=== PATIENT | female | born 1940 | race African-American/Black ===

== ENCOUNTER 2024-10-27 19:41 | Inpatient (IN) ==
[2024-10-27 20:13] LABS: Eosinophils#(Absolute)Auto 0.1 (0.0-0.2); White Blood Count 11.6 K/uL (4.3-9.3)
[2024-10-27 20:16] LABS: Basophils%(Percent) Auto 0.3 (0.1-0.85); Eosinophils%(Percent) Auto 0.9 % (0.4-2.8); Granulocytes % - Auto 76.5 % (47.8-71.3); Granulocytes#(Absolute)- Auto 8.9 (2.3-6.0); Mean Corpuscular Volume 75.5 fl (81.0-93.7); Monocytes #(Absolute)- Auto 2.1 (1.1-3.1); Monocytes %(Percent)- Auto 18.4 % (3.6-9.8); Platelet Count 330 K/uL (152-353)
[2024-10-27 20:20] LABS: Potassium 4.7 mmol/L (3.6-5.2)
--- NOTE | 2024-10-27 20:24 | Emergency Department Note ---
HPI - General Adult General Chief complaint: Weakness Stated complaint: weakness, leg swelling Source: patient and family Mode of arrival: WHEELCHAIR Limitations: no limitations History of Present Illness HPI narrative: A 84-year-old female who came into the ER with her daughter stating that she has had 4 months of weakness worsening was seen on the in the ER was diagnosed with anemia at that time she refused blood was sent home to follow the PCP further workup as warranted. Patient states that today she can hardly go to becoming increasing short of breath. Still does not want blood work is wanting to do an iron infusion. Patient denies any blood loss no vaginal bleeding no rectal bleeding stools are brown has 1 to 2/day formed. Patient denies any ill contacts, tries make self do at home but she does realize she is less active has not been to congregation in several months because she is so weak. Denies any fever, chills, nausea, vomiting, Related Data Home Medications Medication Instructions Recorded Confirmed metoprolol tartrate 100 mg tablet 100 mg PO Q12H 10/2210/28/24 furosemide 20 mg tablet 20 mg PO BID 10/28/24 Allergies Allergy/AdvReac Type Severity Reaction Status Date / Time lisinopril AdvReac Mild Cough Verified 10/27/24 20:06 Review of Systems Status of ROS 10 or more systems reviewed and unremark able except as noted in history and below Constitutional Reports: fatigue and malaise; Denies: fever, chills, change in weight, night sweats or change in sleep pattern Eyes Denies: change in vision, blurry vision, blind spots, light sensitivity, eye discomfort or eye discharge Ears, nose, mouth, and throat Denies: throat pain, neck pain, throat swelling, difficulty swallowing, hoarseness, mouth pain or swelling of lips/tongue Cardiovascular Reports: palpitations, swelling of feet/ankles, lightheadedness, shortness of breath with exertion and shortness of breath when lying down; Denies: chest pain or edema Respiratory Reports: shortness of breath; Denies: cough, wheezing, stridor, pain on inspiration or change in phlegm color Gastrointestinal Reports: constipation; Denies: abdominal pain, nausea, vomiting, coffee grounds in vomit, heartburn or diarrhea Genitourinary Reports: urinary incontinence; Denies: painful urination, urinary frequency, urinary urgency, blood in urine or difficulty voiding Musculoskeletal Reports: back pain, extremity swelling and limited range of motion; Denies: neck pain, extremity pain, joint pain or joint swelling Integumentary/Breast Denies: rash, itching, redness, skin pain, skin tenderness, skin swelling or sores Neurological Reports: numbness in extremities, weakness in extremities and dizziness; Denies: headache, lack of coordination, vertigo or confusion Psychiatric Reports: anxiety and difficulty concentrating; Denies: mood swings, panic attacks, change in sleep pattern, hopelessness, loss of interest, irritab ility, paranoia, memory loss, visual hallucinations, auditory hallucinations, tactile hallucinations, suicidal ideation or homicidal ideation Endocrine Denies: excessive urination, excessive thirst, fatigue, cold intolerance, excessive sweating or flushing Hematologic/Lymphatic Denies: easy bruising, easy bleeding or enlarged lymph nodes Allergic/Immunologic Denies: hives, throat swelling, tongue swelling, facial swelling, wheezing or itchy eyes PFSH [facility] Medical History (Updated 10/28/24 @ 14:09 by Mali Saeed DO) Chronic acquired lymphedema Anemia HTN (hypertension) Chronic kidney disease CHF (congestive heart failure) Surgical History H/O: hysterectomy Social History Smoking status: never smoker What is your current living situation: I presently have a place to live Problems where you live: no known problems Highest level of school completed/degree received: Jr High Little interest or pleasure in doing things: not at all Feeling down, depressed, or hopeless: not at all Feel stressed/tense/nervous/anxious/difficulty sleeping: not at all Exam Constitutional: abnormal general appearance (disheveled), (chronically ill) and (frail appearing), no apparent distress, abnormal body habitus (obese), limitations noted (physical limitations) and alert Vital Signs - 24 hr 10/27/24 19:41 10/27/24 19:43 Temperature 98.2 F 98.2 F Pulse Rate 95 H 95 H Respiratory Rate 22 22 Blood Pressure 122/57 122/57 Pulse Oximetry 86 L 86 L Oxygen Delivery Me thod Room Air Room Air Vital Signs - 24 hr 10/27/24 19:41 10/27/24 19:43 10/27/24 20:37 Temperature 98.2 F 98.2 F 97.5 F L Pulse Rate 95 H 95 H Pulse Rate [Brachi al] 87 Respiratory Rate 22 22 18 Blood Pressure 122/57 122/57 Blood Pressure [Le ft Arm] 112/76 Pulse Oximetry 86 L 86 L 99 Oxygen Delivery Me thod Room Air Room Air Room Air Oxygen Flow Rate 10/27/24 21:15 10/27/24 21:32 10/27/24 21:32 Temperature 98.0 F 97.5 F L Pulse Rate 90 Pulse Rate [Brachi al] 87 Respiratory Rate 26 H 18 18 Blood Pressure 144/73 Blood Pressure [Le ft Arm] 112/76 Pulse Oximetry 98 99 99 Oxygen Delivery Me thod Room Air Nasal Can nula Oxygen Flow Rate 10/27/24 23:48 10/27/24 23:50 10/28/24 00:39 Temperature 97.5 F L 97.6 F Pulse Rate 77 Pulse Rate [Brachi al] 84 Respiratory Rate 17 18 Blood Pressure 106/52 141/70 Blood Pressure [Le ft Arm] 111/75 Pulse Oximetry 98 Oxygen Delivery Me thod Room Air Nasal Can nula Oxygen Flow Rate 10/28/24 04:00 10/28/24 08:00 10/28/24 08:49 Temperature 97.3 F L 97.5 F L Pulse Rate Pulse Rate [Brachi al] 87 80 Respiratory Rate 18 20 Blood Pressure Blood Pressure [Le ft Arm] 148/67 150/78 Pulse Oximetry 98 96 97 Oxygen Delivery Me thod Room Air Nasal Can nula Nasal Cannula Oxygen Flow Rate 2 10/28/24 11:08 10/28/24 12:00 10/28/24 12:12 Temperature 98 F Pulse Rate Pulse Rate [Brachi al] 79 Respiratory Rate 29 H Blood Pressure 131/74 Blood Pressure [Le ft Arm] 131/74 Pulse Oximetry 97 100 Oxygen Delivery Me thod Nasal Cannula Oxygen Flow Rate 1 HENMT: normocephalic, head/scalp atraumatic, hearing grossly abnormal, external ears normal, EACs normal, nasal mucous membranes normal, external nose normal, oral mucous membranes abnormal, oropharynx normal and dentition abnormal (dentures) Eyes: PERRL, EOMs intact bilaterally, conjunctivae normal, no scleral icterus, papilledema noted and periorbital findings normal Neck/C-Spine: abnormal to visual inspection, trachea midline, cervical spine nontender, abnormal cervical ROM noted, supple, no meningeal signs, thyroid normal and carotid bruits noted Lymph: no lymphadenopathy noted and no lymphedema noted Chest: inspection of chest abnormal and palpation of chest normal Respiratory: breath sounds unequal, abnormal respiratory effort (rapid), clear to auscultation bilaterally, wheezing noted, no rales, no retractions, no use of accessory muscles and chest percussion normal Cardiovascular: heart rate abnormal (tachycardic), regular rhythm noted, no gallop, no rub, murmur noted, JVD noted, no clicks, peripheral pulses as noted: and no bruits noted Gastrointestinal: abdomen abnormal to inspection (obese), abdomen soft to palpation, nontender to palpation, nondistended, normoactive bowel sounds, hepatosplenomegaly noted, no masses, no pulsatile mass, no ascites, hernia noted and normal rectal exam Genitourinary: no CVA tenderness and bladder normal to palpation Back/Pelvis: spine abnormal to inspection, no thoracic spine tenderness and no lumbar spine tenderness Extremities: abnormal to inspection, normal to palpation, tenderness noted, abnormal ROM noted, no joint enlargement and deformity noted BLE swelling hard and thick black epidermis sheens and calves Neurology: 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, no movement abnormality noted, no focal motor deficit noted, sensory deficit noted, deep tendon reflexes as noted:, gait abnormality noted, speech normal, coordination normal, no pronator drift noted, no fasciculations noted and GCS normal Psychiatry: Mental Status Exam documented within this Exam's Psych section mental status grossly normal, oriented x3, thought process abnormality noted, cooperative, affect normal, psychomotor activity normal and memory normal Feel stressed/tense/nervous/anxious/difficulty sleeping: decline to answer Skin: skin color abnormal Reports (pale), no rash, no lesions, no ecchymosis noted, no wounds, no lacerations, skin turgor abnormal, no petechiae, no mottling, nails abnormality noted and alopecia noted (wearing wig) Course Reevaluation(s) Reevaluation #1: Patient did well throughout the ER stay remained tachycardic and tachypneic requiring 2 L to keep her sats above 92% in the ER remained pleasant even with her concerns and questions about the blood. Required 2 hours of intervention between myself Patty and [facility] nursing staff to answer the patient and her daughter and her son on the phone concerns about getting blood and side effects along with possibility of vinicio COVID-vaccine from this. Vital Signs Vital signs: Vital Signs Temperature 98.2 F 10/27/24 19:41 Pulse Rate 95 H 10/27/24 19:41 Respiratory Rate 22 10/27/24 19:41 Blood Pressure 122/57 10/27/24 19:41 Pulse Oximetry 86 L 10/27/24 19:41 Oxygen Delivery Method Room Air 10/27/24 19:41 Temperature 97.5 F L 10/28/24 16:00 Pulse Rate 92 H 10/28/24 16:00 Respiratory Rate 18 10/28/24 16:00 Blood Pressure 152/82 10/28/24 16:00 Pulse Oximetry 93 L 10/28/24 16:00 Oxygen Delivery Method Nasal Cannula 10/28/24 16:00 Oxygen Flow Rate 1 10/28/24 16:00 Medical Decision Making MDM Narrative Medical decision making narrative: Patient reluctant for blood secondary to believes of contamination and worries about side effects and bizarre ideas such as vinicio COVID vaccines that she did not take when she does not want. Symptomatic somatic anemia, fluid overload, angina, CO, chronic lipedema, Differential Diagnosis Differential Diagnosis: Symptomatic somatic anemia, fluid overload, angina, CO, chronic lipedema, Medical Records Medical records reviewed: Yes I reviewed the patient's medical records Lab Data Lab results reviewed: Yes I reviewed the patient's lab results Labs: Lab Results 10/27/24 10/27/24 Range/Units 20:00 20:35 WBC 11.6 H (4.3-9.3) K/uL RBC 3.1 L (4.00-5.50) M/uL Hgb 6.5 L* (12.5-15.8) gm/dL Hct 24.1 L (35.9-46.7) % MCV 75.5 L (81.0-93.7) fl MCH 21.3 L (27.6-32.2) pg MCHC 28.2 L (33.1-35.3) g/dl RDW 27.6 H (11.4-14.2) % Plt Count 330 (152-353) K/uL MPV 7.2 (6.9-10.8) fl Gran % 76.5 H (47.8-71.3) % Lymph % (Auto) 3.9 L (20.0-43.0) % [place] % (Auto) 18.4 H (3.6-9.8) % Eos % (Auto) 0.9 (0.4-2.8) % Baso % (Auto) 0.3 (0.1-0.85) Lymph # (Auto) 0.5 L (1.1-3.1) [place] # (Auto) 2.1 (1.1-3.1) Eos # (Auto) 0.1 (0.0-0.2) Baso # (Auto) 0.0 (0.0-0.1) Absolute Gran (auto) 8.9 H (2.3-6.0) Total Counted 100 Neutrophils 86.0 H (47.8-71.3) % Lymphocytes (Manual) 10.0 L (20.0-43.3) % Monocytes 4.0 (3.6-9.8) % Hypochromia Slight (25-26) (None Seen) Platelet Estimate Normal (NormaL) RBC Morphology Abnormal (Normal) Anisocytosis 2+ (Negative) Macrocytosis 2+ ( 111 - 115 ) (Negative) Target Cells 1+ (Negative) Sodium 139 (136-145) mmol/L Potassium 4.7 (3.6-5.2) mmol/L Chloride 102.0 (98-107) mmol/L Carbon Dioxide 27 (21-32) mmol/L Anion Gap 10.0 (4-14) mEq/L BUN 37 H (7-18) mg/dL Creatinine 2.0 H (0.6-1.3) mg/dL Estimated GFR 24.5 (>59.9) Glucose 107 (70-110) mg/dL Calcium 7.8 L (8.5-10.1) mg/dL Total Bilirubin 0.90 (0.0-1.0) mg/dL AST 42 H (15-37) U/L ALT 13 L (30-65) U/L Alkaline Phosphatase 132 (50-136) U/L Troponin I High Sens 42.30 (4.0-60.4) ng/L B-Natriuretic Peptide 5000.0 H (0-100) pg/mL Total Protein 7.4 (6.4-8.2) g/dL Albumin 1.9 L (3.4-5.0) g/dL Blood Type O Positive Antibody Screen Negative Crossmatch (AHG) See Detail ECG Data Attestation: I have reviewed the pertinent ECG results. Prior ECG tracings: available for review Interpretation: EKG-sinus rhythm, ventricular premature complex, rate 94, RR 640, OR 194 Discharge Plan Discharge Patient Disposition: Admitted As Observation Condition: Improved Clinical Impression: Anemia, Hypoalbuminemia, Fluid overload, Essential hypertension, CKD (chronic kidney disease) stage 4, GFR 15-29 ml/min, Chronic acquired lymphedema, Hypoxia Interventions: ED Discharge Assessment Last Done: 10/27/24 21:15 ED Discharge Vital Sign Last Done: 10/27/24 21:15 Emergency Department Charge Sheet Last Done: 10/27/24 21:27 Discharge Date/Time: 10/27/24 21:15
[2024-10-27 20:27] LABS: Hematocrit 24.1 % (35.9-46.7)
[2024-10-27 20:28] LABS: Anisocytosis 2+ (Negative); Hypochromia Slight (25-26) (None Seen); RBC Morphology Abnormal (Normal); Total Cells Counted 100
[2024-10-27 20:29] LABS: Target Cells 1+ (Negative)
[2024-10-27] MEDS ORDERED: ONDANSETRON HCL/PF 4 MG/2 ML VIAL INJ PRN (20:36)
[2024-10-27] MEDS ORDERED: ACETAMINOPHEN 500 MG TABLET PO PRN (20:50)
[2024-10-27] MEDS: ALBUMIN HUMAN 25% 100 ML IV SCH (20:58)
[2024-10-27] MEDS ORDERED: ALBUMIN HUMAN 25% 100 ML IV ONE (20:58)
[2024-10-27 21:28] LABS: Base Excess ABG 5.3 mmo1/L (-2-2); PCO2 ABG 52 mmHg (35-45); PO2 ABG 73 mmHg (60-100); pH ABG 7.39 (7.35-7.45)
[2024-10-27 21:29] LABS: Oxygen Saturation ABG 94 % (92-100)
[2024-10-27] MEDS: BUMETANIDE 1 MG/4 ML VIAL IVP ONE (22:20)
[2024-10-28] MEDS: 0.9 % SODIUM CHLORIDE 250 ML IV ONE (00:50)
[2024-10-28] MEDS: ACETAMINOPHEN 500 MG TABLET PO PRN (04:30)
[2024-10-28 06:11] LABS: Basophils #(Absolute) Auto 0.1 (0.0-0.1); Basophils%(Percent) Auto 0.4 (0.1-0.85); Eosinophils%(Percent) Auto 0.3 % (0.4-2.8); Granulocytes % - Auto 57.5 % (47.8-71.3); Hematocrit 25.4 % (35.9-46.7); Mean Corpuscular Volume 77.6 fl (81.0-93.7); Monocytes #(Absolute)- Auto 0.7 (1.1-3.1); Platelet Count 266 K/uL (152-353); White Blood Count 12.2 K/uL (4.3-9.3)
[2024-10-28 06:40] LABS: Potassium 4.5 mmol/L (3.6-5.2)
[2024-10-28] MEDS: IPRATROPIUM/ALBUTEROL SULFATE 3 ML AMPUL.NEB INH SCH (08:49)
[2024-10-28] MEDS: BUDESONIDE 0.5 MG/2 ML AMPUL.NEB INH SCH (08:49)
[2024-10-28] MEDS: PANTOPRAZOLE SODIUM 40 MG TABLET.DR PO SCH (09:32)
[2024-10-28] MEDS: CEFTRIAXONE SODIUM 1 GM in 0.9 % SODIUM CHLORIDE MB+ 50 ML IV SCH (09:32)
[2024-10-28] MEDS: METHYLPREDNISOLONE SOD SUCC/PF 40 MG/ML VIAL INJ SCH (09:32)
[2024-10-28] MEDS: MAGNESIUM, ALUMINUM HYDROXIDE 30 ML ORAL.SUSP PO SCH (09:33)
[2024-10-28] MEDS: AZITHROMYCIN 500 MG 500 MG in 0.9 % SODIUM CHLORIDE 250 ML IV SCH (09:33)
[2024-10-28] MEDS: FUROSEMIDE 20 MG/2 ML VIAL IV ONE (11:42)
--- NOTE | 2024-10-28 14:14 | History & Physical Report ---
H&P: HPI History of Present Illness Chief complaint: weakness, leg swelling Narrative: A 84-year-old female who came into the ER with her daughter stating that she has had 4 months of weakness worsening was seen on the in the ER was diagnosed with anemia at that time she refused blood was sent home to follow the PCP further workup as warranted. Patient states that today she can hardly go to becoming increasing short of breath. Still does not want blood work is wanting to do an iron infusion. Patient denies any blood loss no vaginal bleeding no rectal bleeding stools are brown has 1 to 2/day formed. Patient denies any ill contacts, tries make self do at home but she does realize she is less active has not been to [facility] in several months because she is so weak. Denies any fever, chills, nausea, vomiting, In the ER spent over 2 hours between me and [place] with education and trying to encourage the patient for the need of blood as it is more rapid than the iron and gave him take some the strain off the heart and that along with albumin can help pull fluid into the vasculature so renal function could hopefully improve and some of the swelling would also improve along with use of diuretics such as Bumex and/or Lasix as patient responds to them. Review of Systems Status of ROS 10 or more systems reviewed and unremark able except as noted in history and below Constitutional Reports: fatigue and malaise; Denies: fever, chills, change in weight, night sweats or change in sleep pattern Eyes Denies: change in vision, blurry vision, blind spots, light sensitivity, eye discomfort or eye discharge Ears, nose, mouth, and throat Denies: throat pain, neck pain, throat swelling, difficulty swallowing, hoarseness, mouth pain or swelling of lips/tongue Cardiovascular Reports: palpitations, swelling of feet/ankles, lightheadedness, shortness of breath with exertion and shortness of breath when lying down; Denies: chest pain or edema Respiratory Reports: shortness of breath; Denies: cough, wheezing, stridor, pain on inspiration or change in phlegm color Gastrointestinal Reports: constipation; Denies: abdominal pain, nausea, vomiting, coffee grounds in vomit, heartburn or diarrhea Genitourinary Reports: urinary incontinence; Denies: painful urination, urinary frequency, urinary urgency, blood in urine or difficulty voiding Musculoskeletal Reports: back pain, extremity swelling and limited range of motion; Denies: neck pain, extremity pain, joint pain or joint swelling Integumentary/Breast Denies: rash, itching, redness, skin pain, skin tenderness, skin swelling or sores Neurological Reports: numbness in extremities, weakness in extremities and dizziness; Denies: headache, lack of coordination, vertigo or confusion Psychiatric Reports: anxiety and difficulty concentrating; Denies: mood swings, panic attacks, change in sleep pattern, hopelessness, loss of interest, irritability, paranoia, memory loss, visual hallucinations, auditory hallucinations, tactile hallucinations, suicidal ideation or homicidal ideation Endocrine Denies: excessive urination, excessive thirst, fatigue, cold intolerance, excessive sweating or flushing Hematologic/Lymphatic Denies: easy bruising, easy bleeding or enlarged lymph nodes Allergic/Immunologic Denies: hives, throat swelling, tongue swelling, facial swelling, wheezing or itchy eyes PFSH PFS Medical History (Updated 10/28/24 @ 14:09 by Mali Saeed DO) Chronic acquired lymphedema Anemia HTN (hypertension) Chronic kidney disease CHF (congestive heart failure) Surgical History H/O: hysterectomy Social History Smoking status: never smoker What is your current living situation: I presently have a place to live Problems where you live: no known problems Highest level of school completed/degree received: Jr [employer] Little interest or pleasure in doing things: not at all Feeling down, depressed, or hopeless: not at all Feel stressed/tense/nervous/anxious/difficulty sleeping: not at all Meds Home Medications and Allergies Home Medications Medication Instructions Recorded Confirmed Type metoprolol tartrate 100 mg tablet 100 mg PO Q12H 10/2210/28/24 History furosemide 20 mg tablet 20 mg PO BID 10/28/24 History Allergies Allergy/AdvReac Type Severity Reaction Status Date / Time lisinopril AdvReac Mild Cough Verified 10/27/24 20:06 Exam Constitutional: abnormal general appearance (disheveled), (chronically ill) and (frail appearing), no apparent distress, abnormal body habitus (obese), limitations noted (physical limitations) and alert Vital Signs - 24 hr 10/27/24 19:41 10/27/24 19:43 10/27/24 20:37 Temperature 98.2 F 98.2 F 97.5 F L Pulse Rate 95 H 95 H Pulse Rate [Brachi al] 87 Respiratory Rate 22 22 18 Blood Pressure 122/57 122/57 Blood Pressure [Le ft Arm] 112/76 Pulse Oximetry 86 L 86 L 99 Oxygen Delivery Me thod Room Air Room Air Room Air Oxygen Flow Rate 10/27/24 21:15 10/27/24 21:32 10/27/24 21:32 Temperature 98.0 F 97.5 F L Pulse Rate 90 Pulse Rate [Brachi al] 87 Respiratory Rate 26 H 18 18 Blood Pressure 144/73 Blood Pressure [Le ft Arm] 112/76 Pulse Oximetry 98 99 99 Oxygen Delivery Me thod Room Air Nasal Can nula Oxygen Flow Rate 10/27/24 23:48 10/27/24 23:50 10/28/24 00:39 Temperature 97.5 F L 97.6 F Pulse Rate 77 Pulse Rate [Brachi al] 84 Respiratory Rate 17 18 Blood Pressure 106/52 141/70 Blood Pressure [Le ft Arm] 111/75 Pulse Oximetry 98 Oxygen Delivery Me thod Room Air Nasal [place] nula Oxygen Flow Rate 10/28/24 04:00 10/28/24 08:00 10/28/24 08:49 Temperature 97.3 F L 97.5 F L Pulse Rate Pulse Rate [Brachi al] 87 80 Respiratory Rate 18 20 Blood Pressure Blood Pressure [Le ft Arm] 148/67 150/78 Pulse Oximetry 98 96 97 Oxygen Delivery Me thod Room Air Nasal [place] nula Nasal Cannula Oxygen Flow Rate 2 10/28/24 11:08 10/28/24 12:00 10/28/24 12:12 Temperature 98 F Pulse Rate Pulse Rate [Brachi al] 79 Respiratory Rate 29 H Blood Pressure 131/74 Blood Pressure [Le ft Arm] 131/74 Pulse Oximetry 97 100 Oxygen Delivery Me thod Nasal Cannula Oxygen Flow Rate 1 HENMT: normocephalic, head/scalp atraumatic, hearing grossly abnormal, external ears normal, EACs normal, nasal mucous membranes normal, external nose normal, oral mucous membranes abnormal, oropharynx normal and dentition abnormal (dentures) Eyes: PERRL, EOMs intact bilaterally, conjunctivae normal, no scleral icterus, papilledema noted and periorbital findings normal Neck/C-Spine: abnormal to visual inspection, trachea midline, cervical spine nontender, abnormal cervical ROM noted, supple, no meningeal signs, thyroid normal and carotid bruits noted Lymph: no lymphadenopathy noted and no lymphedema noted Chest: inspection of chest abnormal and palpation of chest normal Respiratory: breath sounds unequal, abnormal respiratory effort (rapid), clear to auscultation bilaterally, wheezing noted, no rales, no retractions, no use of accessory muscles and chest percussion normal Cardiovascular: heart rate abnormal (tachycardic), regular rhythm noted, no gallop, no rub, murmur noted, JVD noted, no clicks, peripheral pulses as noted: and no bruits noted Gastrointestinal: abdomen abnormal to inspection (obese), abdomen soft to palpation, nontender to palpation, nondistended, normoactive bowel sounds, hepatosplenomegaly noted, no masses, no pulsatile mass, no ascites, hernia noted and normal rectal exam Genitourinary: no CVA tenderness and bladder normal to palpation Back/Pelvis: spine abnormal to inspection, no thoracic spine tenderness and no lumbar spine tenderness Extremities: abnormal to inspection, normal to palpation, tenderness noted, abnormal ROM noted, no joint enlargement and deformity noted BLE swelling hard and thick black epidermis sheens and calves Neurology: 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, no movement abnormality noted, no focal motor deficit noted, sensory deficit noted, deep tendon reflexes as noted:, gait abnormality noted, speech normal, coordination normal, no pronator drift noted, no fasciculations noted and GCS normal Psychiatry: Mental Status Exam documented within this Exam's Psych section mental status grossly normal, oriented x3, thought process abnormality noted, cooperative, affect normal, psychomotor activity normal and memory normal Feel stressed/tense/nervous/anxious/difficulty sleeping: decline to answer Skin: skin color abnormal Reports (pale), no rash, no lesions, no ecchymosis noted, no wounds, no lacerations, skin turgor abnormal, no petechiae, no mottling, nails abnormality noted and alopecia noted (wearing wig) Assessment and Plan Assessment and Plan (1) Acute exacerbation of CHF (congestive heart failure): Qualifiers: Heart failure type: combined systolic and diastolic Qualified Code(s): I50.43 - Acute on chronic combined systolic (congestive) and diastolic (congestive) heart failure Code(s): I50.9 - Heart failure, unspecified (2) UTI (urinary tract infection): Qualifiers: Hematuria presence: with hematuria Urinary tract infection type: acute cystitis Qualified Code(s): N30.01 - Acute cystitis with hematuria Code(s): N39.0 - Urinary tract infection, site not specified (3) Pneumonia: Qualifiers: Laterality: bilateral Lung location: unspecified part of lung Pneumonia type: due to unspecified organism Qualified Code(s): J18.9 - Pneumonia, unspecified organism Code(s): J18.9 - Pneumonia, unspecified organism (4) Anemia: Qualifiers: Anemia type: iron deficiency Iron deficiency anemia type: unspecified iron deficiency Qualified Code(s): D50.9 - Iron deficiency anemia, unspecified Code(s): D64.9 - Anemia, unspecified (5) Chronic acquired lymphedema: Code(s): I89.0 - Lymphedema, not elsewhere classified (6) Iron deficiency: Code(s): E61.1 - Iron deficiency (7) Essential hypertension: Code(s): I10 - Essential (primary) hypertension (8) CKD stage 3b, 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: Code(s): N18.32 - Chronic kidney disease, stage 3b (9) Hypoalbuminemia: Code(s): E88.09 - Other disorders of plasma-protein metabolism, not elsewhere classified Plan Hep-Lock Rocephin 1 g IV Azithromycin 5 mg IV daily DuoNebs every 4 hours Pulmicort every 12 hours Solu-Medrol 40 mg IV every 12 hours 1 unit of blood type and cross transfuse Iron studies to see if transfusion necessary Lasix 40 mg IV as needed Daily weights Cardiac monitoring Continuous pulse ox Continue family education and encouragement to consider regiment of treatment plans [facility] see if they can help alleviate patient's concerns and education and encourage supportive treatment Results Labs Labs: CBC 10/27/24 10/28/24 Range/Units 20:00 05:45 WBC 11.6 H 12.2 H (4.3-9.3) K/uL RBC 3.1 L 3.3 L (4.00-5.50) M/uL Hgb 6.5 L* 7.5 L (12.5-15.8) gm/dL Hct 24.1 L 25.4 L (35.9-46.7) % Plt Count 330 266 (152-353) K/uL Gran % 76.5 H 57.5 (47.8-71.3) % Lymph % (Auto) 3.9 L 35.8 (20.0-43.0) % [place] % (Auto) 18.4 H 6.0 (3.6-9.8) % Eos % (Auto) 0.9 0.3 L (0.4-2.8) % Baso % (Auto) 0.3 0.4 (0.1-0.85) Lymph # (Auto) 0.5 L 4.4 H (1.1-3.1) [place] # (Auto) 2.1 0.7 L (1.1-3.1) Eos # (Auto) 0.1 0.0 (0.0-0.2) Baso # (Auto) 0.0 0.1 (0.0-0.1) Absolute Gran (auto) 8.9 H 7.0 H (2.3-6.0) CMP 10/27/24 10/28/24 20:00 05:45 Sodium 139 139 Potassium 4.7 4.5 Chloride 102.0 102.0 Carbon Dioxide 27 29 BUN 37 H 38 H Creatinine 2.0 H 2.0 H Glucose 107 91 Calcium 7.8 L 8.1 L Liver Function 10/27/24 10/28/24 Range/Units 20:00 05:45 Total Bilirubin 0.90 1.40 H (0.0-1.0) mg/dL AST 42 H 43 H (15-37) U/L ALT 13 L 14 L (30-65) U/L Alkaline Phosphatase 132 122 (50-136) U/L Albumin 1.9 L 2.5 L (3.4-5.0) g/dL ABG ABG results: 10/27/24 20:58 ABG pH 7.39 ABG pCO2 52 H ABG pO2 135 ABG HCO3 31.5 H ABG Total CO2 33.1 ABG O2 Saturation 94 ABG Base Excess 5.3 H Attestation: I have reviewed the pertinent ABG results. Pulse Oximetry Attestation: I have reviewed the pertinent pulse oximetry results. ECG Attestation: I have reviewed the pertinent ECG results. Prior ECG tracings: available for review Imaging Imaging ordered: Chest x-ray Radiologist's impression: fatiguefatigue; COMPARISON: Prior study or studies were utilized for comparison during interpretation with the most relevant dated 10/14/2024 TECHNIQUE: XR CHEST 1V FINDINGS: Chest: Lines and tubes: Cardiac leads overlie the chest. Mediastinum: Cardiomegaly. Pulmonary vessels: There is pulmonary vascular congestion. Lung alvarado: Patchy opacities are seen Pleura: No effusion. No pneumothorax. Bones and soft tissues: No acute osseous or soft tissue abnormality. IMPRESSION: 1. Pneumonia versus heart failure
[2024-10-29 06:56] LABS: Basophils%(Percent) Auto 0.3 (0.1-0.85); Eosinophils%(Percent) Auto 0.1 % (0.4-2.8); Granulocytes % - Auto 85.1 % (47.8-71.3); Granulocytes#(Absolute)- Auto 8.7 (2.3-6.0); Hematocrit 32.5 % (35.9-46.7); Mean Corpuscular Volume 86.8 fl (81.0-93.7); Monocytes #(Absolute)- Auto 0.1 (1.1-3.1); Platelet Count 235 K/uL (152-353); White Blood Count 10.2 K/uL (4.3-9.3)
[2024-10-29 07:37] LABS: Potassium 4.3 mmol/L (3.6-5.2)
[2024-10-29] MEDS: MAGNESIUM SULFATE 1 GM/2 ML 3 GM in 0.9 % SODIUM CHLORIDE 100ML 100 ML IV ONE (09:33)
--- NOTE | 2024-10-29 13:56 | Progress Note ---
Progress Note: Subjective Subjective Interval history: patient concerned over no BM although she is feeling better still very tired. Daughter and patient still have lots of questions took over 7 hours to convince the patient to take the IV magnesium. Vomited breakfast and did not feel like eating breakfast. no fevers and sats improved . Exam Constitutional: abnormal general appearance (disheveled), (chronically ill) and (frail appearing), no apparent distress, abnormal body habitus (obese), limitations noted (physical limitations) and alert Vital Signs - 24 hr 10/28/24 16:00 10/28/24 19:43 10/28/24 20:00 Temperature 97.5 F L 98.0 F 98.0 F Pulse Rate [Brachi al] 92 H 89 89 Respiratory Rate 18 17 17 Blood Pressure [Le ft Arm] 152/82 175/92 175/92 Pulse Oximetry 93 L 95 95 Oxygen Delivery Me thod Nasal Cannula Room Air Room Air Oxygen Flow Rate 1 10/28/24 20:25 10/29/24 00:00 10/29/24 04:00 Temperature 98.0 F 97.5 F L 96.5 F L Pulse Rate [Brachi al] 89 83 86 Respiratory Rate 17 18 19 Blood Pressure [Le ft Arm] 175/92 168/88 165/85 Pulse Oximetry 95 96 96 Oxygen Delivery Me thod Room Air Nasal Cannula Nasal Cannula Oxygen Flow Rate 10/29/24 08:00 Temperature 98.2 F Pulse Rate [Brachi al] 94 H Respiratory Rate 18 Blood Pressure [Le ft Arm] 172/87 Pulse Oximetry 90 L Oxygen Delivery Me thod Room Air Oxygen Flow Rate HENMT: normocephalic, head/scalp atraumatic, hearing grossly abnormal, external ears normal, EACs normal, nasal mucous membranes normal, external nose normal, oral mucous membranes abnormal, oropharynx normal and dentition abnormal (dentures) Eyes: PERRL, EOMs intact bilaterally, conjunctivae normal, no scleral icterus, papilledema noted and periorbital findings normal Neck/C-Spine: abnormal to visual inspection, trachea midline, cervical spine nontender, abnormal cervical ROM noted, supple, no meningeal signs, thyroid normal and carotid bruits noted Lymph: no lymphadenopathy noted and no lymphedema noted Chest: inspection of chest abnormal and palpation of chest normal Respiratory: breath sounds unequal, abnormal respiratory effort (rapid), clear to auscultation bilaterally, wheezing noted, no rales, no retractions and no use of accessory muscles Cardiovascular: heart rate abnormal (tachycardic), regular rhythm noted, no gallop, no rub, murmur noted, JVD noted, no clicks, peripheral pulses as noted: and no bruits noted Gastrointestinal: abdomen abnormal to inspection (obese), abdomen soft to palpation, nontender to palpation, nondistended, normoactive bowel sounds, hepatosplenomegaly noted, no masses, no pulsatile mass, no ascites, hernia noted and normal rectal exam Genitourinary: no CVA tenderness and bladder normal to palpation Back/Pelvis: spine abnormal to inspection (increased thoracic kyphosis), no thoracic spine tenderness, no lumbar spine tenderness, thoracic spine ROM abnormal and lumbar spine ROM abnormal Extremities: abnormal to inspection, normal to palpation, tenderness noted, abnormal ROM noted, no joint enlargement and deformity noted BLE swelling hard still but wrinkles noted today and thick black epidermis sheens and calves Neurology: 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 of 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, no movement abnormality noted, no focal motor deficit noted, sensory deficit noted, deep tendon reflexes as noted:, gait abnormality noted, speech normal, coordination normal, no pronator drift noted, no fasciculations noted and GCS normal Psychiatry: Mental Status Exam documented within this Exam's Psych section mental status grossly normal, oriented x3, thought process abnormality noted, cooperative, affect normal, psychomotor activity normal and memory normal Feel stressed/tense/nervous/anxious/difficulty sleeping: decline to answer Skin: skin color abnormal Reports (pale), no rash, no lesions, no ecchymosis noted, no wounds, no lacerations, skin turgor abnormal, no petechiae, no mottling, nails abnormality noted and alopecia noted (wearing wig) Progress Note: Objective Labs Labs: CBC 10/29/24 Range/Units 05:55 WBC 10.2 H (4.3-9.3) K/uL RBC 3.8 L (4.00-5.50) M/uL Hgb 10.4 L (12.5-15.8) gm/dL Hct 32.5 L (35.9-46.7) % Plt Count 235 (152-353) K/uL Gran % 85.1 H (47.8-71.3) % Lymph % (Auto) 13.5 L (20.0-43.0) % [place] % (Auto) 1.0 L (3.6-9.8) % Eos % (Auto) 0.1 L (0.4-2.8) % Baso % (Auto) 0.3 (0.1-0.85) Lymph # (Auto) 1.4 (1.1-3.1) [place] # (Auto) 0.1 L (1.1-3.1) Eos # (Auto) 0.0 (0.0-0.2) Baso # (Auto) 0.0 (0.0-0.1) Absolute Gran (auto) 8.7 H (2.3-6.0) CMP 10/29/24 05:55 Sodium 137 Potassium 4.3 Chloride 102.0 Carbon Dioxide 29 BUN 17 Creatinine 0.9 Glucose 360 H Calcium 8.9 Liver Function 10/29/24 Range/Units 05:55 Total Bilirubin 0.51 (0.0-1.0) mg/dL AST 16 (15-37) U/L ALT 23 L (30-65) U/L Alkaline Phosphatase 100 (50-136) U/L Albumin 3.1 L (3.4-5.0) g/dL Progress Note: A&P Assessment and Plan (1) Acute exacerbation of CHF (congestive heart failure): Qualifiers: Heart failure type: combined systolic and diastolic Qualified Code(s): I50.43 - Acute on chronic combined systolic (congestive) and diastolic (congestive) heart failure (2) UTI (urinary tract infection): Qualifiers: Hematuria presence: with hematuria Urinary tract infection type: acute cystitis Qualified Code(s): N30.01 - Acute cystitis with hematuria (3) Pneumonia: Qualifiers: Laterality: bilateral Lung location: unspecified part of lung Pneumonia type: due to unspecified organism Qualified Code(s): J18.9 - Pneumonia, unspecified organism (4) Anemia: Qualifiers: Anemia type: iron deficiency Iron deficiency anemia type: unspecified iron deficiency Qualified Code(s): D50.9 - Iron deficiency anemia, unspecified (5) Chronic acquired lymphedema: (6) Iron deficiency: (7) Essential hypertension: (8) CKD stage 3b, 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: (9) Hypoalbuminemia: Plan Hep-Lock Rocephin 1 g IV Azithromycin 5 mg IV daily DuoNebs every 4 hours Pulmicort every 12 hours Solu-Medrol 40 mg IV every 12 hours 1 unit of blood type and cross transfuse Iron studies to see if transfusion necessary Lasix 60 mg IV x 1 Daily weights Cardiac monitoring Continuous pulse ox Continue family education and encouragement to consider regiment of treatment plans [facility] see if they can help alleviate patient's concerns and education and encourage supportive treatment, followed with patient again today and agree apon treatment plan Fall Risk Details Hartley Fall Scale Risk Level: Low Fall Risk Current Medications: Current Medications Acetaminophen (Acetaminophen 500 Mg Tablet) 1,000 mg PO Q6H PRN PRN Reason: MILD PAIN SCALE 1-4 Last Admin: 10/28/24 04:30 Dose: 1,000 mg Acetaminophen (Acetaminophen 500 Mg Tablet) 1,000 mg PO Q6H PRN PRN Reason: Fever OF 100.5 OR GREATER Albuterol Sulfate (Ipratropium/Albuterol Sulfate 3 Ml Ampul.Neb) 3 ml INH RQ4 [facility] Last Admin: 10/29/24 11:59 Dose: Not Given Budesonide (Budesonide 0.5 Mg/2 Ml Ampul.Neb) 0.5 mg INH RBID [facility] Last Admin: 10/29/24 07:15 Dose: Not Given Furosemide (Furosemide 20 Mg/2 Ml Vial) 60 mg IV ONCE ONE Stop: 10/29/24 13:54 Ceftriaxone Sodium 1 gm/ (Sodium Chloride) 50 mls @ 100 mls/hr IV DAILY [facility] Last Infusion: 10/29/24 10:03 Dose: Infused Azithromycin 500 mg/ Sodium (Chloride) 250 mls @ 250 mls/hr IV DAILY [facility] Last Infusion: 10/29/24 10:32 Dose: Infused Magnesium Hydroxide (Magnesium, Aluminum Hydroxide 30 Ml Oral.Susp) 30 ml PO DAILY [facility] Last Admin: 10/29/24 11:36 Dose: Not Given Methylprednisolone Sodium Succinate (Methylprednisolone Sod Succ/Pf 40 Mg/Ml Vial) 40 mg INJ Q12H [facility] Last Admin: 10/29/24 11:59 Dose: 40 mg Ondansetron HCl (Ondansetron Hcl/Pf 4 Mg/2 Ml Vial) 4 mg INJ Q6H PRN PRN Reason: Nausea And Vomiting Pantoprazole Sodium (Pantoprazole Sodium 40 Mg Tablet.Dr) 40 mg PO DAILY [facility] Last Admin: 10/29/24 11:36 Dose: Not Given Time Spent With Patient Time: Total time spent is greater than 50% in coordination of care (as documented) at patient's floor/unit and/or counseling patient:
[2024-10-29] MEDS: FUROSEMIDE 20 MG/2 ML VIAL IV ONE (14:48)
[2024-10-29] MEDS: MAGNESIUM OXIDE 400 MG TABLET PO ONE (14:48)
[2024-10-30] MEDS: METHYLPREDNISOLONE SOD SUCC/PF 40 MG/ML VIAL INJ SCH (00:31)
[2024-10-30 03:26] LABS: Urine Appearance HAZY (CLEAR); Urine Color YELLOW (STRAW/YELL.)
[2024-10-30 03:27] LABS: Urine Blood NEGATIVE (NEG - TRACE); Urine Urobilinogen Normal (NORMAL)
[2024-10-30 06:47] LABS: Basophils%(Percent) Auto 0.2 (0.1-0.85); Monocytes #(Absolute)- Auto 0.3 (1.1-3.1)
[2024-10-30 06:48] LABS: Eosinophils%(Percent) Auto 0.2 % (0.4-2.8); Granulocytes % - Auto 47.7 % (47.8-71.3); Granulocytes#(Absolute)- Auto 5.4 (2.3-6.0); Hematocrit 29.4 % (35.9-46.7); Mean Corpuscular Volume 78.8 fl (81.0-93.7); Monocytes %(Percent)- Auto 2.9 % (3.6-9.8); Platelet Count 254 K/uL (152-353); White Blood Count 11.4 K/uL (4.3-9.3)
[2024-10-30 07:02] LABS: Potassium 5.6 mmol/L (3.6-5.2)
[2024-10-30] MEDS: ALBUMIN HUMAN 25% 100 ML IV SCH (13:21)
--- NOTE | 2024-10-30 13:48 | Progress Note ---
Progress Note: Subjective Subjective Interval history: patient less urge to urinate today although still making water. breathing good. setting up in chair today and not on potty chair as yesterday. states she feels well today. Exam Constitutional: abnormal general appearance (disheveled), (chronically ill) and (frail appearing), no apparent distress, abnormal body habitus (obese), limitations noted (physical limitations) and alert Vital Signs - 24 hr 10/29/24 15:18 10/29/24 16:00 10/29/24 20:00 Temperature 97.9 F 97.6 F Pulse Rate [Brachi al] 86 82 Respiratory Rate 17 19 Blood Pressure 167/85 Blood Pressure [Le ft Arm] 167/85 146/84 Pulse Oximetry 90 L 96 Oxygen Delivery Me thod Room Air Nasal Cannula Oxygen Flow Rate Fraction of Inspir ed Oxygen 10/29/24 23:40 10/30/24 00:35 10/30/24 03:47 Temperature 97.6 F 97.8 F Pulse Rate [Brachi al] 82 85 Respiratory Rate 17 18 Blood Pressure Blood Pressure [Le ft Arm] 155/84 171/87 Pulse Oximetry 98 96 97 Oxygen Delivery Me thod Nasal Cannula Nasal Cannula Nasal Cannula Oxygen Flow Rate 2 Fraction of Inspir ed Oxygen 28 10/30/24 08:00 10/30/24 11:46 Temperature 98.3 F 97.8 F Pulse Rate [Brachi al] 83 86 Respiratory Rate 19 18 Blood Pressure Blood Pressure [Le ft Arm] 163/93 156/87 Pulse Oximetry 94 L 100 Oxygen Delivery Me thod Nasal Cannula Nasal Cannula Oxygen Flow Rate 2 2 Fraction of Inspir ed Oxygen HENMT: normocephalic, head/scalp atraumatic, hearing grossly abnormal, external ears normal, EACs normal, nasal mucous membranes normal, external nose normal, oral mucous membranes abnormal, oropharynx normal and dentition abnormal (dentures) Eyes: PERRL, EOMs intact bilaterally, conjunctivae normal, no scleral icterus, papilledema noted and periorbital findings normal Neck/C-Spine: abnormal to visual inspection, trachea midline, cervical spine nontender, abnormal cervical ROM noted, supple, no meningeal signs, thyroid normal and carotid bruits noted Lymph: no lymphadenopathy noted and no lymphedema noted Chest: inspection of chest abnormal and palpation of chest normal Respiratory: breath sounds unequal (diminished bases), normal respiratory effort (rapid), clear to auscultation bilaterally, no wheezes, no rales, no retractions and no use of accessory muscles Cardiovascular: normal heart rate noted, regular rhythm noted, no gallop, no rub, murmur noted, JVD noted, no clicks, peripheral pulses as noted: and no bruits noted Gastrointestinal: abdomen abnormal to inspection (obese), abdomen soft to palpation, nontender to palpation, nondistended, normoactive bowel sounds, hepatosplenomegaly noted, no masses, no pulsatile mass, no ascites, hernia noted and normal rectal exam Genitourinary: no CVA tenderness and bladder normal to palpation Back/Pelvis: spine abnormal to inspection (increased thoracic kyphosis), no thoracic spine tenderness, no lumbar spine tenderness, thoracic spine ROM abnormal and lumbar spine ROM abnormal Extremities: abnormal to inspection, normal to palpation, tenderness noted, abnormal ROM noted, no joint enlargement and deformity noted BLE swelling softer today but still swollen still but wrinkles noted today and thick black epidermis sheens and calves Neurology: yoker II-XII intact, no movement abnormality noted, no focal motor deficit noted, sensory deficit noted, deep tendon reflexes as noted:, gait abnormality noted, speech normal, coordination normal, no pronator drift noted, no fasciculations noted and GCS normal Psychiatry: Mental Status Exam documented within this Exam's Psych section mental status grossly normal, oriented x3, thought process abnormality noted, cooperative, affect normal, psychomotor activity normal and memory normal Feel stressed/tense/nervous/anxious/difficulty sleeping: decline to answer Skin: skin color abnormal Reports (pale), no rash, no lesions, no ecchymosis noted, no wounds, no lacerations, skin turgor abnormal, no petechiae, no mottling, nails abnormality noted and alopecia noted (wearing wig) Progress Note: Objective Labs Labs: CBC 10/30/24 Range/Units 06:40 WBC 11.4 H (4.3-9.3) K/uL RBC 3.7 L (4.00-5.50) M/uL Hgb 8.3 L (12.5-15.8) gm/dL Hct 29.4 L (35.9-46.7) % Plt Count 254 (152-353) K/uL Gran % 47.7 L (47.8-71.3) % Lymph % (Auto) 49.0 H (20.0-43.0) % [place] % (Auto) 2.9 L (3.6-9.8) % Eos % (Auto) 0.2 L (0.4-2.8) % Baso % (Auto) 0.2 (0.1-0.85) Lymph # (Auto) 5.6 H (1.1-3.1) [place] # (Auto) 0.3 L (1.1-3.1) Eos # (Auto) 0.0 (0.0-0.2) Baso # (Auto) 0.0 (0.0-0.1) Absolute Gran (auto) 5.4 (2.3-6.0) CMP 10/30/24 06:40 Sodium 138 Potassium 5.6 H Chloride 100.0 Carbon Dioxide 28 BUN 56 H Creatinine 3.0 H Glucose 156 H Calcium 8.3 L Liver Function 10/30/24 Range/Units 06:40 Total Bilirubin 1.35 H (0.0-1.0) mg/dL AST 50 H (15-37) U/L ALT 18 L (30-65) U/L Alkaline Phosphatase 129 (50-136) U/L Albumin 2.4 L (3.4-5.0) g/dL Urine 10/30/24 03:20 Urine Color Yellow Urine Appearance Hazy Ur Specific [place] 1.030 Urine Protein 2+ Urine Glucose (UA) Normal Progress Note: A&P Assessment and Plan (1) Acute exacerbation of CHF (congestive heart failure): Qualifiers: Heart failure type: combined systolic and diastolic Qualified Code(s): I50.43 - Acute on chronic combined systolic (congestive) and diastolic (congestive) heart failure (2) UTI (urinary tract infection): Qualifiers: Hematuria presence: with hematuria Urinary tract infection type: acute cystitis Qualified Code(s): N30.01 - Acute cystitis with hematuria (3) Pneumonia: Qualifiers: Laterality: bilateral Lung location: unspecified part of lung Pneumonia type: due to unspecified organism Qualified Code(s): J18.9 - Pneumonia, unspecified organism (4) Anemia: Qualifiers: Anemia type: iron deficiency Iron deficiency anemia type: unspecified iron deficiency Qualified Code(s): D50.9 - Iron deficiency anemia, unspecified (5) Chronic acquired lymphedema: (6) Iron deficiency: (7) Essential hypertension: (8) CKD stage 3b, 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: Assessment and Plan: worsening today secondary to over diureses over last 2 days (9) Hypoalbuminemia: Plan Hep-Lock Rocephin 1 g IV Azithromycin 5 mg IV daily wean oxygen as tolerated DuoNebs every 4 hours Pulmicort every 12 hours Solu-Medrol 40 mg IV every 12 hours stopped 1 unit of blood type and cross transfuse tolerated albumin x 2 days Iron studies to see if transfusion necessary Lasix held Daily weights Cardiac monitoring Continuous pulse ox Continue family education and encouragement to consider regiment of treatment plans [facility] see if they can help alleviate patient's concerns and education and encourage supportive treatment Fall Risk Details Hartley Fall Scale Risk Level: Low Fall Risk Current Medications: Current Medications Acetaminophen (Acetaminophen 500 Mg Tablet) 1,000 mg PO Q6H PRN PRN Reason: MILD PAIN SCALE 1-4 Last Admin: 10/28/24 04:30 Dose: 1,000 mg Acetaminophen (Acetaminophen 500 Mg Tablet) 1,000 mg PO Q6H PRN PRN Reason: Fever OF 100.5 OR GREATER Albuterol Sulfate (Ipratropium/Albuterol Sulfate 3 Ml Ampul.Neb) 3 ml INH RQ4 [facility] Last Admin: 10/30/24 11:23 Dose: Not Given Budesonide (Budesonide 0.5 Mg/2 Ml Ampul.Neb) 0.5 mg INH RBID [facility] Last Admin: 10/30/24 07:16 Dose: Not Given Ceftriaxone Sodium 1 gm/ (Sodium Chloride) 50 mls @ 100 mls/hr IV DAILY [facility] Last Infusion: 10/30/24 09:27 Dose: Infused Azithromycin 500 mg/ Sodium (Chloride) 250 mls @ 250 mls/hr IV DAILY [facility] Last Infusion: 10/30/24 10:28 Dose: Infused Albumin Human (Albumin Human 25%) 100 mls @ 60 mls/hr IV Q2H [facility] Stop: 10/30/24 16:24 Last Admin: 10/30/24 13:21 Dose: 60 mls/hr Magnesium Hydroxide (Magnesium, Aluminum Hydroxide 30 Ml Oral.Susp) 30 ml PO DAILY [facility] Last Admin: 10/30/24 10:11 Dose: Not Given Ondansetron HCl (Ondansetron Hcl/Pf 4 Mg/2 Ml Vial) 4 mg INJ Q6H PRN PRN Reason: Nausea And Vomiting Pantoprazole Sodium (Pantoprazole Sodium 40 Mg Tablet.Dr) 40 mg PO DAILY [facility] Last Admin: 10/30/24 10:11 Dose: Not Given Time Spent With Patient Time: Total time spent is greater than 50% in coordination of care (as documented) at patient's floor/unit and/or counseling patient:
[2024-10-31 06:42] LABS: Potassium 6.1 mmol/L (3.6-5.2)
[2024-10-31 07:03] LABS: Monocytes #(Absolute)- Auto 0.3 (1.1-3.1)
[2024-10-31 07:04] LABS: Basophils%(Percent) Auto 0.3 (0.1-0.85); Granulocytes % - Auto 49.5 % (47.8-71.3); Granulocytes#(Absolute)- Auto 5.4 (2.3-6.0); Hematocrit 28.8 % (35.9-46.7); Mean Corpuscular Volume 79.2 fl (81.0-93.7); Platelet Count 158 K/uL (152-353); White Blood Count 10.8 K/uL (4.3-9.3)
--- NOTE | 2024-10-31 14:31 | Progress Note ---
Progress Note: Subjective Subjective Interval history: Patient feeling tired today and rested well and Grandson reports no issues. Daughter spoke with [facility] today and agrees to current plan. Small BM. No fevers. Patient and family still micromanaging care and refusing alot of care despite my and [place] physician still doing detailed education on risk and benefits. Exam Constitutional: abnormal general appearance (chronically ill), distress noted (moderate) and (respiratory), abnormal body habitus (obese), limitations noted (physical limitations) and alert Vital Signs - 24 hr 10/30/24 16:00 10/30/24 19:38 10/30/24 19:40 Temperature 97.4 F L 97.4 F L Pulse Rate [Brachi al] 79 79 Respiratory Rate 19 20 Blood Pressure [Le ft Arm] 163/83 160/79 Pulse Oximetry 94 L 99 97 Oxygen Delivery Me thod Room Air Nasal Cannula Nasal Cannula Oxygen Flow Rate 2 10/30/24 23:26 10/31/24 04:00 10/31/24 08:00 Temperature 97.8 F 97.6 F 97.5 F L Pulse Rate [Brachi al] 81 76 68 Respiratory Rate 18 16 19 Blood Pressure [Le ft Arm] 157/83 158/77 157/89 Pulse Oximetry 100 97 94 L Oxygen Delivery Me thod Nasal Cannula Nasal Cannula Nasal Cannula Oxygen Flow Rate 2 10/31/24 12:00 Temperature 97.6 F Pulse Rate [Brachi al] 70 Respiratory Rate 19 Blood Pressure [Le ft Arm] 104/64 Pulse Oximetry 92 L Oxygen Delivery Me thod Nasal Cannula Oxygen Flow Rate 2 HENMT: normocephalic, head/scalp atraumatic, hearing grossly normal bilaterally, external ears normal, TMs abnormal, external nose normal, oral mucous membranes abnormal, dentition abnormal and gingiva normal Eyes: PERRL, EOMs intact bilaterally, conjunctivae normal, no scleral icterus, papilledema noted and periorbital findings abnormal (mild edema) Neck/C-Spine: visual inspection normal, trachea midline and abnormal cervical ROM noted Lymph: no lymphadenopathy noted and no lymphedema noted Chest: inspection of chest normal and palpation of chest normal Respiratory: breath sounds unequal (dimished bilaterally), normal respiratory effort, auscultation abnormal (diminished breath sound) and no rales Cardiovascular: normal heart rate noted, regular rhythm noted, gallop noted, no rub, murmur noted and peripheral pulses as noted: Gastrointestinal: abdomen normal to inspection, abdomen soft to palpation and nontender to palpation Genitourinary: no CVA tenderness and bladder normal to palpation Back/Pelvis: spine abnormal to inspection, no thoracic spine tenderness, no lumbar spine tenderness, thoracic spine ROM abnormal (increased thoracic kypho sis) and lumbar spine ROM abnormal Extremities: normal to inspection and normal to palpation 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: 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 test 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-XII 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, no movement abnormality noted, no focal motor deficit noted, sensory deficit noted, deep tendon reflexes 2+ bilaterally, gait abnormality noted, speech normal, coordination normal and GCS normal Psychiatry: Mental Status Exam documented within this Exam's Psych section mental status grossly normal, oriented x3, thought process abnormality noted, cooperative, affect abnormality noted and psychomotor abnormality noted Feel stressed/tense/nervous/anxious/difficulty sleeping: rather much Life stressors: other Life stressor details: health Skin: skin color abnormal Reports (pale), no rash, no lesions, no ecchymosis noted, no wounds, no lacerations, skin turgor abnormal, no jaundice, no petechiae, no mottling, nails abnormality noted and alopecia noted (wig in place) Progress Note: Objective Labs Labs: CBC 10/31/24 Range/Units 05:00 WBC 10.8 H (4.3-9.3) K/uL RBC 3.6 L (4.00-5.50) M/uL Hgb 8.4 L (12.5-15.8) gm/dL Hct 28.8 L (35.9-46.7) % Plt Count 158 (152-353) K/uL Gran % 49.5 (47.8-71.3) % Lymph % (Auto) 47.2 H (20.0-43.0) % [place] % (Auto) 3.0 L (3.6-9.8) % Eos % (Auto) 0.0 L (0.4-2.8) % Baso % (Auto) 0.3 (0.1-0.85) Lymph # (Auto) 5.1 H (1.1-3.1) [place] # (Auto) 0.3 L (1.1-3.1) Eos # (Auto) 0.0 (0.0-0.2) Baso # (Auto) 0.0 (0.0-0.1) Absolute Gran (auto) 5.4 (2.3-6.0) CMP 10/31/24 05:00 Sodium 138 Potassium 6.1 H Chloride 100.0 Carbon Dioxide 25 BUN 66 H Creatinine 3.2 H Glucose 162 H Calcium 7.9 L Liver Function 10/31/24 Range/Units 05:00 Total Bilirubin 1.70 H (0.0-1.0) mg/dL AST 158 H (15-37) U/L ALT 45 (30-65) U/L Alkaline Phosphatase 150 H (50-136) U/L Albumin 2.9 L (3.4-5.0) g/dL Urine 10/30/24 03:20 Urine Color Yellow Urine Appearance Hazy Ur Specific [place] 1.030 Urine Protein 2+ Urine Glucose (UA) Normal Progress Note: A&P Assessment and Plan (1) Acute exacerbation of CHF (congestive heart failure): Qualifiers: Heart failure type: combined systolic and diastolic Qualified Code(s): I50.43 - Acute on chronic combined systolic (congestive) and diastolic (congestive) heart failure (2) UTI (urinary tract infection): Qualifiers: Hematuria presence: with hematuria Urinary tract infection type: acute cystitis Qualified Code(s): N30.01 - Acute cystitis with hematuria (3) Hyperkalemia: (4) Renal failure: Qualifiers: Renal failure chronicity: acute on chronic Acute renal failure type: with other specified pathological lesion Chronic kidney disease stage: stage 5 (GFR < 15), not on chronic dialysis Qualified Code(s): N17.8 - Other acute kidney failure; N18.5 - Chronic kidney disease, stage 5 (5) Anemia: Qualifiers: Anemia type: iron deficiency Iron deficiency anemia type: unspecified iron deficiency Qualified Code(s): D50.9 - Iron deficiency anemia, unspecified (6) Pneumonia: Qualifiers: Laterality: bilateral Lung location: unspecified part of lung Pneumonia type: due to unspecified organism Qualified Code(s): J18.9 - Pneumonia, unspecified organism (7) Chronic acquired lymphedema: (8) Iron deficiency: (9) Essential hypertension: (10) CKD stage 3b, 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: Assessment and Plan: worsening today secondary to over diureses over last 2 days (11) Hypoalbuminemia: (12) End of life care: (13) Hyperphosphatemia: (14) Patient's noncompliance with other medical treatment and regimen for other reason: (15) Acute systolic (congestive) heart failure: Plan Hep-Lock Rocephin 1 g IV Azithromycin 5 mg IV daily wean oxygen as tolerated DuoNebs every 4 hours Pulmicort every 12 hours Solu-Medrol 40 mg IV every 12 hours stopped 1 unit of blood type and cross transfuse tolerated albumin x 2 days Iron studies to see if transfusion necessary Lasix held Daily weights ECHO CT head and patient and daughter declined Insulin 10 units IV with 1 am dextrose patient and daughter refused the Insulin Metoprolol 12.5 mg po bid accu checks EKG Sevelamer 800 mg po tid Albuterol 10 mg continuous neb Cardiac monitoring Continuous pulse ox Continue family education and encouragement to consider regiment of treatment plans [facility] on salt see if they can help alleviate patient's concerns and education and encourage supportive treatment Fall Risk Details Hartley Fall Scale Risk Level: Moderate Fall Risk Current Medications: Current Medications Acetaminophen (Acetaminophen 500 Mg Tablet) 1,000 mg PO Q6H PRN PRN Reason: MILD PAIN SCALE 1-4 Last Admin: 10/28/24 04:30 Dose: 1,000 mg Acetaminophen (Acetaminophen 500 Mg Tablet) 1,000 mg PO Q6H PRN PRN Reason: Fever OF 100.5 OR GREATER Albuterol (Albuterol Sulfate 2.5 Mg/3 Ml Vial.Neb) 10 mg INH CONT ONE Stop: 10/31/24 14:23 Albuterol Sulfate (Ipratropium/Albuterol Sulfate 3 Ml Ampul.Neb) 3 ml INH RQ4 [facility] Last Admin: 10/31/24 00:37 Dose: Not Given Budesonide (Budesonide 0.5 Mg/2 Ml Ampul.Neb) 0.5 mg INH RBID [facility] Last Admin: 10/30/24 19:37 Dose: Not Given Dextrose (Dextrose 50 % 25 Gm/50 Ml Syringe) 25 gm INJ ONCE ONE Stop: 10/31/24 14:30 Ceftriaxone Sodium 1 gm/ (Sodium Chloride) 50 mls @ 100 mls/hr IV DAILY [facility] Last Infusion: 10/31/24 10:58 Dose: Infused Azithromycin 500 mg/ Sodium (Chloride) 250 mls @ 250 mls/hr IV DAILY [facility] Last Infusion: 06/23/25 10:27 Dose: Infused Calcium Gluconate 1,000 mg/ (Sodium Chloride) 110 mls @ 100 mls/hr IV ONCE ONE Stop: 10/31/24 15:27 Insulin Human Regular (Insulin Regular, Human 100 Unit/Ml) 10 unit IV ONCE ONE; Protocol Stop: 10/31/24 14:25 Lactobacillus Acidophilus (L. Acidophilus/L.[place] 1 Gm Gran.Pack) 1 gm PO DAILY [facility] Magnesium Hydroxide (Magnesium, Aluminum Hydroxide 30 Ml Oral.Susp) 30 ml PO DAILY [facility] Last Admin: 10/31/24 08:58 Dose: Not Given Metoprolol Tartrate (Metoprolol Tartrate 25 Mg Tablet) 12.5 mg PO BID [facility] Ondansetron HCl (Ondansetron Hcl/Pf 4 Mg/2 Ml Vial) 4 mg INJ Q6H PRN PRN Reason: Nausea And Vomiting Pantoprazole Sodium (Pantoprazole Sodium 40 Mg Tablet.) 40 mg PO DAILY [facility] Last Admin: 10/31/24 08:57 Dose: 40 mg Sevelamer Carbonate (Sevelamer Carbonate 800 Mg Tablet) 800 mg PO TIDWM [facility] Time Spent With Patient Time: Total time spent is greater than 50% in coordination of care (as documented) at patient's floor/unit and/or counseling patient: Time with patient: greater than 35 minutes
[2024-10-31] MEDS: CALCIUM GLUCONATE 1,000 MG in 0.9 % SODIUM CHLORIDE 100ML 100 ML IV ONE (15:30)
[2024-10-31] MEDS: ALBUTEROL SULFATE 2.5 MG/3 ML VIAL.NEB INH ONE ×3 (15:37→23:02)
[2024-10-31] MEDS: L. ACIDOPHILUS/L.BULGARICU 1 GM GRAN.PACK PO SCH (15:40)
[2024-10-31] MEDS: DEXTROSE 50 % 25 GM/50 ML SYRINGE INJ ONE (15:41)
[2024-10-31] MEDS: SEVELAMER CARBONATE 800 MG TABLET PO SCH (17:29)
[2024-10-31 18:22] LABS: Potassium 6.8 mmol/L (3.6-5.2)
[2024-10-31] MEDS: SODIUM POLYSTYRENE SULFONATE 15 GM/60 ML ORAL.SUSP PO ONE ×2 (18:53→22:27)
[2024-10-31 20:25] LABS: PO2 ABG 62 mmHg (60-100)
[2024-10-31 20:33] LABS: Base Excess ABG -3.6 mmo1/L (-2-2); Oxygen Saturation ABG 86 % (92-100); PCO2 ABG 61 mmHg (35-45); pH ABG 7.22 (7.35-7.45)
--- NOTE | 2024-10-31 20:51 | Emergency Department Note ---
HPI - SOB/Dyspnea General Chief Complaint: Weakness Stated Complaint: weakness, leg swelling Source: patient and family Mode of arrival: WHEELCHAIR Limitations: no limitations History of Present Illness HPI Narrative: I am called by respiratory therapy to evaluate this patient, who has had worsening shortness of breath and respiratory failure today. She was admitted to our facility for pneumonia 4 days ago. She has been receiving neb treatments and antibiotics. She has progressively declined. Her BNP earlier today was 5000. Her white count maintains elevated 12. Her potassium has steadily been increasing, up to 6.8 this evening. She is now in a metabolic acidosis with a pH of 7.22. She has not had a lactic acid checked recently. Her BUN and creatinine have been worsening as well, with creatinine now 3.3 and her GFR less than 15. Patient is beyond her capabilities to care for her here, she will need nephrology and cardiology consult, possibly dialysis. After evaluating her [id number] on the floor, made the decision that she will need to be transferred to higher level care. MD elicited complaint: Reports shortness of breath and cough Pertinent past history: Reports congestive heart failure and pneumonia Onset (ago): day(s) () Context: Reports recent illness Timing: Reports progressively worsening Severity: moderate-severe Exacerbating factors: Reports nothing Relieving factors: Reports oxygen, bronchodilators and upright position Known history of: Reports congestive heart failure Associated symptoms: Reports denies other symptoms, chest pain and pain with inspiration Treatment prior to arrival: Reports oxygen and bronchodilator Related Data Home oxygen amount: none Home Medications Medication Instructions Recorded Confirmed metoprolol tartrate 100 mg tablet 100 mg PO Q12H 10/2210/28/24 furosemide 20 mg tablet 20 mg PO BID 10/28/24 Allergies Allergy/AdvReac Type Severity Reaction Status Date / Time lisinopril AdvReac Mild Cough Verified 10/27/24 20:06 Review of Systems Status of ROS 10 or more systems reviewed and unremark able except as noted in history and below Constitutional Reports: malaise; Denies: fever, chills, change in weight, fatigue, night sweats or change in sleep pattern Eyes Denies: change in vision, blurry vision, blind spots, light sensitivity, eye discomfort or eye discharge Ears, nose, mouth, and throat Denies: throat pain, neck pain, throat swelling, difficulty swallowing, hoarseness, mouth pain, swelling of lips/tongue or vertigo Cardiovascular Reports: palpitations, swelling of feet/ankles, lightheadedness, shortness of breath with exertion and shortness of breath when lying down; Denies: chest pain or edema Respiratory Reports: shortness of breath; Denies: cough, wheezing, stridor, pain on inspiration or change in phlegm color Gastrointestinal Reports: constipation; Denies: abdominal pain, nausea, vomiting, coffee grounds in vomit, heartburn, diarrhea or difficulty swallowing Genitourinary Reports: urinary incontinence; Denies: painful urination, urinary frequency, urinary urgency, blood in urine or difficulty voiding Musculoskeletal Reports: back pain, extremity swelling and limited range of motion; Denies: neck pain, extremity pain, joint pain or joint swelling Integumentary/Breast Denies: rash, itching, redness, skin pain, skin tenderness, skin swelling or sores Neurological Reports: numbness in extremities, weakness in extremities and dizziness; Denies: headache, lack of coordination, vertigo or confusion Psychiatric Reports: anxiety and difficulty concentrating; Denies: mood swings, panic attacks, change in sleep pattern, hopelessness, loss of interest, irritability, paranoia, memory loss, visual hallucinations, auditory hallucinations, tactile hallucinations, suicidal ideation or homicidal ideation Endocrine Denies: excessive urination, excessive thirst, fatigue, cold intolerance, excessive sweating or flushing Hematologic/Lymphatic Denies: easy bruising, easy bleeding or enlarged lymph nodes Allergic/Immunologic Denies: hives, throat swelling, tongue swelling, facial swelling, wheezing or itchy eyes PFSH PFSH Medical History Chronic acquired lymphedema Anemia HTN (hypertension) Chronic kidney disease CHF (congestive heart failure) Surgical History H/O: hysterectomy Social History Smoking status: never smoker What is your current living situation: I presently have a place to live Problems where you live: no known problems Highest level of school completed/degree received: Jr High Little interest or pleasure in doing things: not at all Feeling down, depressed, or hopeless: not at all Feel stressed/tense/nervous/anxious/difficulty sleeping: decline to answer Exam Constitutional: abnormal general appearance (chronically ill), distress noted (moderate) and (respiratory) and average body habitus HENMT: normocephalic, head/scalp atraumatic, hearing grossly normal bilaterally, external ears normal and external nose normal Eyes: PERRL, EOMs intact bilaterally and conjunctivae normal Neck/C-Spine: visual inspection normal and trachea midline Lymph: no lymphadenopathy noted and no lymphedema noted Chest: inspection of chest normal and palpation of chest normal Respiratory: breath sounds equal bilaterally, abnormal respiratory effort (labored), auscultation abnormal (diminished breath sound) and rales noted (base) Cardiovascular: normal heart rate noted, regular rhythm noted, no gallop, no rub and no murmur Gastrointestinal: abdomen normal to inspection, abdomen soft to palpation and nontender to palpation Genitourinary: no CVA tenderness and bladder normal to palpation Back/Pelvis: spine normal to inspection, no thoracic spine tenderness, no lumbar spine tenderness, thoracic spine ROM normal and lumbar spine ROM normal Extremities: normal to inspection and normal to palpation Neurology: no movement abnormality noted, no focal motor deficit noted, no sensory deficits noted, gait normal and speech normal Psychiatry: mental status grossly normal, oriented x3, thought process normal and cooperative Skin: skin color normal, no rash, no lesions and no ecchymosis noted Course Reevaluation(s) Reevaluation #1: 20:45--I evaluate the patient after RT informs of poor blood gas results, hyperkalemia, hypoxia, acidosis. Patient stable on the floor at present but I worry she will continue to decline and we do not have the specialists here that she will require. I make the decision to reach out for transfer to higher level of care. I call [facility] transfer center at 20:55 for transfer to [facility], if available. Reevaluation #2: Patient is clinically felt BiPAP. pCO2 slightly increased, pH slightly improved. I recommend to the family that the next step would be intubation, and we discussed the risks and benefits of bedside. Family seems hesitant to intubate, and I do share their hesitancy as there is at least a moderate chance that she will not come back off of the ventilator. However, I do reiterate that my professional recommendation is intubation, as the patient is clinically failed BiPAP. I do respect their decision, and give them time to discuss amongst himself as well with call for transport. Time: 01:19 Consultations Consultation #1: Dr. Castro, associate medical director ICU and [facility] accepts the patient for their care. She request that we place the patient on BiPAP, recheck her ABG, and assess need for intubation. Time: 21:30 Vital Signs Vital signs: Vital Signs Temperature 98.2 F 10/27/24 19:41 Pulse Rate 95 H 10/27/24 19:41 Respiratory Rate 22 10/27/24 19:41 Blood Pressure 122/57 10/27/24 19:41 Pulse Oximetry 86 L 10/27/24 19:41 Oxygen Delivery Method Room Air 10/27/24 19:41 Temperature 97.1 F L 10/31/24 20:00 Pulse Rate 86 10/31/24 22:45 Respiratory Rate 19 10/31/24 20:00 Blood Pressure 142/72 10/31/24 22:27 Pulse Oximetry 95 10/31/24 20:00 Oxygen Delivery Method Nasal Cannula 10/31/24 20:00 Oxygen Flow Rate 2 10/31/24 19:15 Fraction of Inspired Oxygen 28 10/31/24 22:45 MDM - SOB/Dyspnea MDM Narrative Medical decision making narrative: CHF, COPD, end-stage renal disease, renal failure, acute kidney injury, res piratory failure Patient is clinically worsening, now requires a higher level of care. After speaking with the associate medical director at [facility], who accepts the patient. She request BiPAP trial, and intubation if patient fails. After the BiPAP trial, patient has failed, and I discussed intubation with family, but they are hesitant at this time to proceed with intubation. I do inform them that this will be conversation that they will have at [facility] as well, and asked that they breathe. The results hit. Patient holding static, not improving, not significantly worsening.Stable at time of transport. Differential Diagnosis Differential diagnosis: Likely acute exacerbation of chronic obstructive airways disease, congestive heart failure, community acquired pneumonia, asthma with exacerbation and pulmonary embolism Medical Records Attestation: I reviewed the patient's medical records. Lab Data Attestation: I reviewed the patient's lab results. Labs: Lab Results 10/27/24 10/27/24 Range/Units 20:00 20:35 WBC 11.6 H (4.3-9.3) K/uL RBC 3.1 L (4.00-5.50) M/uL Hgb 6.5 L* (12.5-15.8) gm/dL Hct 24.1 L (35.9-46.7) % MCV 75.5 L (81.0-93.7) fl MCH 21.3 L (27.6-32.2) pg MCHC 28.2 L (33.1-35.3) g/dl RDW 27.6 H (11.4-14.2) % Plt Count 330 (152-353) K/uL MPV 7.2 (6.9-10.8) fl Gran % 76.5 H (47.8-71.3) % Lymph % (Auto) 3.9 L (20.0-43.0) % Collin % (Auto) 18.4 H (3.6-9.8) % Eos % (Auto) 0.9 (0.4-2.8) % Baso % (Auto) 0.3 (0.1-0.85) Lymph # (Auto) 0.5 L (1.1-3.1) Collin # (Auto) 2.1 (1.1-3.1) Eos # (Auto) 0.1 (0.0-0.2) Baso # (Auto) 0.0 (0.0-0.1) Absolute Gran (auto) 8.9 H (2.3-6.0) Total Counted 100 Neutrophils 86.0 H (47.8-71.3) % Lymphocytes (Manual) 10.0 L (20.0-43.3) % Monocytes 4.0 (3.6-9.8) % Hypochromia Slight (25-26) (None Seen) Platelet Estimate Normal (NormaL) RBC Morphology Abnormal (Normal) Anisocytosis 2+ (Negative) Macrocytosis 2+ ( 111 - 115 ) (Negative) Target Cells 1+ (Negative) Sodium 139 (136-145) mmol/L Potassium 4.7 (3.6-5.2) mmol/L Chloride 102.0 (98-107) mmol/L Carbon Dioxide 27 (21-32) mmol/L Anion Gap 10.0 (4-14) mEq/L BUN 37 H (7-18) mg/dL Creatinine 2.0 H (0.6-1.3) mg/dL Estimated GFR 24.5 (>59.9) Glucose 107 (70-110) mg/dL Calcium 7.8 L (8.5-10.1) mg/dL Iron 94 (35-150) ug/dL TIBC 274 (250-450) ug/dL Ferritin 66 (3-244) ng/mL Total Bilirubin 0.90 (0.0-1.0) mg/dL AST 42 H (15-37) U/L ALT 13 L (30-65) U/L Alkaline Phosphatase 132 (50-136) U/L Troponin I High Sens 42.30 (4.0-60.4) ng/L B-Natriuretic Peptide 5000.0 H (0-100) pg/mL Total Protein 7.4 (6.4-8.2) g/dL Albumin 1.9 L (3.4-5.0) g/dL Blood Type O Positive Antibody Screen Negative Crossmatch (AHG) See Detail ABG Data Attestation: I personally reviewed and interpreted this ABG as follows: Interpretation: Respiratory acidosis Imaging Data Imaging ordered: Chest x-ray Attestation: I personally reviewed and interpreted this imaging study as follows: Radiologist's impression: Pulmonary edema, worsening Critical Care Time Critical Care Time Critical Care Time: Yes Total Critical Care Time: 310 Attestation: I spent 310 minutes of critical care time with this patient, exclusive of any procedures. Discharge Plan Discharge Patient Disposition: Xfer Short-Term Hosp Condition: Stable Chief Complaint: Weakness Clinical Impression: Acute on chronic respiratory failure with hypoxia and hypercapnia, Anemia, Hypoalbuminemia, Fluid overload, Essential hypertension, CKD (chronic kidney disease) stage 4, GFR 15-29 ml/min, Chronic acquired lymphedema, Hypoxia, Acute renal failure, Acute hyperkalemia Interventions: ED Discharge Assessment Last Done: 10/27/24 21:15 ED Discharge Vital Sign Last Done: 10/27/24 21:15 Emergency Department Charge Sheet Last Done: 10/27/24 21:27 Time of Disposition: 00:13 Discharge Date/Time: 10/27/24 21:15
[2024-10-31] MEDS ORDERED: IPRATROPIUM/ALBUTEROL SULFATE 3 ML AMPUL.NEB INH PRN (20:57)
[2024-10-31] MEDS: SODIUM BICARBONATE 1 MEQ/ML VIAL IV ONE (21:00)
[2024-10-31] MEDS: SODIUM BICARBONATE 10 MEQ/10 ML SYRINGE 50 ML IVP ONE (21:20)
[2024-10-31] MEDS: GLUCAGON 1 MG VIAL INJ ONE (21:56)
[2024-10-31] MEDS: FUROSEMIDE 20 MG/2 ML VIAL IV ONE ×2 (22:02→22:03)
[2024-10-31] MEDS: SODIUM BICARBONATE 650 MG TABLET PO SCH (22:04)
[2024-10-31] MEDS ORDERED: SODIUM BICARBONATE 1 MEQ/ML VIAL ONE (22:07)
[2024-10-31] MEDS: METOPROLOL TARTRATE 25 MG TABLET PO SCH (22:27)
[2024-10-31 23:45] LABS: Base Excess ABG 0.3 mmo1/L (-2-2)
[2024-11-01 00:11] LABS: pH ABG 7.28 (7.35-7.45)
[2024-11-01 00:12] LABS: Oxygen Saturation ABG 83 % (92-100); PCO2 ABG 60 mmHg (35-45); PO2 ABG 54 mmHg (60-100)
[2024-11-01 01:27] LABS: PCO2 ABG 66 mmHg (35-45); PO2 ABG 120 mmHg (60-100); pH ABG 7.27 (7.35-7.45)
[2024-11-01 01:28] LABS: Base Excess ABG 1.8 mmo1/L (-2-2); Oxygen Saturation ABG 98 % (92-100)
[2024-11-01 01:30] VITALS: BP 153/71
[2024-11-01 01:46] VITALS: PULSE 80; RESP 22; TEMP 97.9
[2024-11-01] MEDS ORDERED: METOPROLOL TARTRATE 50 MG TABLET PO SCH (03:30)
[2024-11-01 05:45] LABS: Potassium 6.3 mmol/L (3.6-5.2)
--- NOTE | 2024-11-01 08:34 | Discharge Summary ---
DS: Providers Provider Date of admission: 10/27/24 20:36 Primary care physician: Vera Keita NP Admitting clinician: Mali Saeed Attending physician on admission: Mali Saeed Consults: 10/30/24 20:34 Consult to Respiratory Therapy Routine Comment: Consulting Provider: Physician Instructions: Reason for consultation: oxygen weaning Attending physician on discharge: Mali Saeed Discharging clinician: Mali Saeed Anticipated date of discharge: 11/01/24 DS: Diagnosis Discharge Diagnosis (1) Acute exacerbation of CHF (congestive heart failure): Qualifiers: Heart failure type: combined systolic and diastolic Qualified Code(s): I50.43 - Acute on chronic combined systolic (congestive) and diastolic (congestive) heart failure (2) Hyperkalemia: (3) Renal failure: Qualifiers: Renal failure chronicity: acute on chronic Acute renal failure type: with other specified pathological lesion Chronic kidney disease stage: stage 5 (GFR < 15), not on chronic dialysis Qualified Code(s): N17.8 - Other acute kidney failure; N18.5 - Chronic kidney disease, stage 5 (4) UTI (urinary tract infection): Qualifiers: Hematuria presence: with hematuria Urinary tract infection type: acute cystitis Qualified Code(s): N30.01 - Acute cystitis with hematuria (5) Pneumonia: Qualifiers: Laterality: bilateral Lung location: unspecified part of lung Pneumonia type: due to unspecified organism Qualified Code(s): J18.9 - P neumonia, unspecified organism (6) Anemia: Qualifiers: Anemia type: iron deficiency Iron deficiency anemia type: unspecified iron deficiency Qualified Code(s): D50.9 - Iron deficiency anemia, unspecified (7) Chronic acquired lymphedema: (8) Iron deficiency: (9) Essential hypertension: (10) CKD stage 3b, 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: (11) Hypoalbuminemia: (12) End of life care: (13) Hyperphosphatemia: (14) Patient's noncompliance with other medical treatment and regimen for other reason: (15) Acute systolic (congestive) heart failure: (16) Bilateral pleural effusion: Plan ECHO showing EF 35-40 percent and down since 12/2024 ECHO selevmer 800 mg po tid albuterol continuous BMP in 6 hours after am and repeat in 4 hours after that as well strict I/O's bicarb patient still refusing the insulin and dextrose reluctant about the Metoprolol Xray showing pleural effusions DS: Summary Hospital Course Hospital Course: Hep-Lock Rocephin 1 g IV Azithromycin 5 mg IV daily DuoNebs every 4 hours Pulmicort every 12 hours Solu-Medrol 40 mg IV every 12 hours 1 unit of blood type and cross transfuse Iron studies to see if transfusion necessary Lasix 40 mg IV as needed Daily weights Cardiac monitoring Continuous pulse ox Continue family education and encouragement to consider regiment of treatment plans [facility] on [facility] see if they can help alleviate patient's concerns and education and encourage supportive treatment. Patient required frequent education and restratification for her and her daughter to except certain treatments and still very strict on which ones they will allow to occur. Patient showed improvement with the Diuresis and ablumin and blood with BP remaining low through out the hospital stay. until the 10/30/2024 when with continued decline of the patients renal function Patient was doing well in the morning at the 23rd continue to decline as the day went on despite interventions for hyperkalemia hyperphosphatemia and renal failure that she would allow to occur echo showed below and further diuretics needed along with another 2 to of albumin on transfer inition on 10/31/2024 and patient finally able to get bed and leave facility for [facility] accepting Physician Dr Castro ECHO showing EF 35-40 percent and down since 12/2024 ECHO selevmer 800 mg po tid albuterol continuous BMP in 6 hours after am and repeat in 4 hours after that as well strict I/O's bicarb patient still refusing the insulin and dextrose reluctant about the Metoprolol Xray showing pleural effusions Status at Discharge Functional status at discharge: wheelchair bound Overall status at discharge: patient is not back to baseline Time Spent with Patient Time attestation: Total time spent providing and/or coordinating discharge services:64 minutes Time spent: greater than 30 minutes Exam Constitutional: abnormal general appearance (disheveled), (chronically ill) and (frail appearing), no apparent distress, abnormal body habitus (obese), limitations noted (physical limitations) and alert Vital Signs - 24 hr 10/31/24 12:00 10/31/24 15:38 10/31/24 16:00 Temperature 97.6 F 97.7 F Pulse Rate Pulse Rate [Brachi al] 70 73 Respiratory Rate 19 20 Blood Pressure Blood Pressure [Le ft Arm] 104/64 138/55 Pulse Oximetry 92 L 92 L 90 L Oxygen Delivery Me thod Nasal Cannula Nasal Cannula Oxygen Flow Rate 2 1 Fraction of Inspir ed Oxygen 10/31/24 19:15 10/31/24 20:00 10/31/24 22:02 Temperature 97.1 F L Pulse Rate Pulse Rate [Brachi al] 81 Respiratory Rate 19 Blood Pressure 142/72 Blood Pressure [Le ft Arm] 142/71 Pulse Oximetry 94 L 95 Oxygen Delivery Me thod Nasal Cannula Nasal Cannula Oxygen Flow Rate 2 Fraction of Inspir ed Oxygen 10/31/24 22:03 10/31/24 22:27 10/31/24 22:45 Temperature Pulse Rate 86 Pulse Rate [Brachi al] Respiratory Rate Blood Pressure 142/72 142/72 Blood Pressure [Le ft Arm] Pulse Oximetry Oxygen Delivery Me thod Oxygen Flow Rate Fraction of Inspir ed Oxygen 10/31/24 23:00 11/01/24 00:00 11/01/24 01:30 Temperature 97.9 F 97.9 F Pulse Rate 85 80 Pulse Rate [Brachi al] Respiratory Rate 20 22 Blood Pressure 153/71 159/80 153/71 Blood Pressure [Le ft Arm] Pulse Oximetry 95 95 Oxygen Delivery Me thod BiPAP BiPAP Oxygen Flow Rate 20 40 Fraction of Inspir ed Oxygen 11/01/24 01:30 Temperature Pulse Rate Pulse Rate [Brachi al] Respiratory Rate Blood Pressure 153/71 Blood Pressure [Le ft Arm] Pulse Oximetry Oxygen Delivery Me thod Oxygen Flow Rate Fraction of Inspir ed Oxygen HENMT: normocephalic, head/scalp atraumatic, hearing grossly abnormal, external ears normal, EACs normal, nasal mucous membranes normal, external nose normal, oral mucous membranes abnormal, oropharynx normal and dentition abnormal (dentures) Eyes: PERRL, EOMs intact bilaterally, conjunctivae normal, no scleral icterus, papilledema noted and periorbital findings normal Neck/C-Spine: abnormal to visual inspection, trachea midline, cervical spine nontender, abnormal cervical ROM noted, supple, no meningeal signs, thyroid normal and carotid bruits noted Lymph: no lymphadenopathy noted and no lymphedema noted Chest: inspection of chest abnormal and palpation of chest normal Respiratory: breath sounds unequal (diminished bases), abnormal respiratory effort (rapid) (labored), auscultation abnormal, no wheezes, rales noted, no retractions and use of accessory muscles noted Cardiovascular: normal heart rate noted, regular rhythm noted, no gallop, no rub, murmur noted, JVD noted, no clicks, peripheral pulses as noted: and no bruits noted Gastrointestinal: abdomen abnormal to inspection (obese), abdomen soft to palpation, nontender to palpation, nondistended, normoactive bowel sounds, hepatosplenomegaly noted, no masses, no pulsatile mass, no ascites, hernia noted and normal rectal exam Genitourinary: no CVA tenderness and bladder normal to palpation Back/Pelvis: spine abnormal to inspection (increased thoracic kyphosis), no thoracic spine tenderness, no lumbar spine tenderness, thoracic spine ROM abnormal and lumbar spine ROM abnormal Extremities: abnormal to inspection, normal to palpation, tenderness noted, abnormal ROM noted, no joint enlargement and deformity noted BLE swelling softer today but still swollen still but wrinkles noted today and thick black epidermis sheens and calves Neurology: machine rebuilder II-XII intact, no movement abnormality noted, no focal motor deficit noted, sensory deficit noted, deep tendon reflexes as noted:, gait abnormality noted, speech normal, coordination normal, no pronator drift noted, no fasciculations noted and GCS normal Psychiatry: Mental Status Exam documented within this Exam's Psych section mental status grossly normal, oriented x3, thought process abnormality noted, cooperative, affect normal, psychomotor activity normal and memory normal Feel stressed/tense/nervous/anxious/difficulty sleeping: decline to answer Skin: skin color abnormal Reports (pale), no rash, no lesions, no ecchymosis noted, no wounds, no lacerations, skin turgor abnormal, no petechiae, mottling noted, nails abnormality noted and alopecia noted (wearing wig) DS: Data Data Completed and Pending Labs on day of discharge: Labs from last 24 hours 11/01/24 11/01/24 11/01/24 01:00 00:46 00:46 ABG pH 7.27 L* ABG pCO2 66 H* ABG pO2 203 120 H ABG PO2/FiO2 Ratio 0.59 ABG HCO3 30.3 H ABG Total CO2 32.3 ABG O2 Saturation 98 ABG Base Excess 1.8 A-a O2 Gradient 83 Respiratory Index 0.7 Actual Respiration Rate 20 Vent Mode Bipap20/10 Vent Rate FiO2 40 Sodium 139 Potassium 6.3 H* Chloride 99.0 Carbon Dioxide 28 Anion Gap 12.0 BUN 73 H Creatinine 3.4 H Estimated GFR 13.0 Glucose 173 H Lactic Acid Calcium 7.7 L 10/31/24 10/31/24 10/31/24 23:35 23:35 21:15 ABG pH 7.28 L* ABG pCO2 60 H* ABG pO2 125 54 L* ABG PO2/FiO2 Ratio ABG HCO3 28.2 H ABG Total CO2 30.0 ABG O2 Saturation 83 L* ABG Base Excess 0.3 A-a O2 Gradient 71 Respiratory Index 1.3 H Actual Respiration Rate Vent Mode Bipap8/4 Vent Rate 18 FiO2 28.0 Sodium Potassium Chloride Carbon Dioxide Anion Gap BUN Creatinine Estimated GFR Glucose Lactic Acid 5.3 H* Calcium 10/31/24 10/31/24 10/31/24 19:47 19:47 18:00 ABG pH 7.22 L* ABG pCO2 61 H* ABG pO2 173 62 ABG PO2/FiO2 Ratio ABG HCO3 25.0 ABG Total CO2 26.9 ABG O2 Saturation 86 L* ABG Base Excess -3.6 L A-a O2 Gradient 111 Respiratory Index 1.8 H Actual Respiration Rate Vent Mode Vent Rate FiO2 35.0 Sodium 138 Potassium 6.8 H* Chloride 101.0 Carbon Dioxide 20 L Anion Gap 17.0 H BUN 76 H Creatinine 3.3 H Estimated GFR 13.4 Glucose 171 H Lactic Acid Calcium 8.0 L Discharge Plan Discharge Disposition: Xfer Short-Term Hosp Condition: Other Anticipated Discharge Date/Time: 11/01/24 02:45 Discharge Medications: No Action furosemide 20 mg tablet 20 mg PO BID metoprolol tartrate 100 mg tablet 100 mg PO Q12H Hospital Course: Hep-Lock Rocephin 1 g IV Azithromycin 5 mg IV daily DuoNebs every 4 hours Pulmicort every 12 hours Solu-Medrol 40 mg IV every 12 hours 1 unit of blood type and cross transfuse Iron studies to see if transfusion necessary Lasix 40 mg IV as needed Daily weights Cardiac monitoring Continuous pulse ox Continue family education and encouragement to consider regiment of treatment plans [facility] on [facility] see if they can help alleviate patient's concerns and education and encourage supportive treatment. Patient required frequent education and restratification for her and her daughter to except certain treatments and still very strict on which ones they will allow to occur. Patient showed improvement with the Diuresis and ablumin and blood with BP remaining low through out the hospital stay. until the 10/30/2024 when with continued decline of the patients renal function Patient was doing well in the morning at the 23rd continue to decline as the day went on despite interventions for hyperkalemia hyperphosphatemia and renal failure that she would allow to occur echo showed below and further diuretics needed along with another 2 to of albumin on transfer inition on 10/31/2024 and patient finally able to get bed and leave facility for [facility] accepting Physician Dr Castro ECHO showing EF 35-40 percent and down since 12/2024 ECHO selevmer 800 mg po tid albuterol continuous BMP in 6 hours after am and repeat in 4 hours after that as well strict I/O's bicarb patient still refusing the insulin and dextrose reluctant about the Metoprolol Xray showing pleural effusions Interventions: MED/SURG & ICU Observation Charge Sheet Last Done: 11/01/24 03:38 Print Language: Citizen Of [place] Activity Restrictions/Additional Instructions: Patient excepted by Dr. Castro to ICU at [facility]. Patient's family declining intubation prior to transport. I have shared medical decision making with them in the bedside, discussing the risk and benefits of the same. Again, they are wishing to hold off on intubation presently. Patient stable at time of transport. Follow-Ups: Vera Keita NP [Primary Care Provider, Medical] Discharge Date/Time: 11/01/24 02:45 Discharge Location: [facility] Discharge Comment: Patient discharged to [facility]
[2024-11-01] MEDS ORDERED: FUROSEMIDE 20 MG TABLET PO SCH (09:00)
--- NOTE | 2024-11-03 15:54 | Echocardiogram Report ---
Study Quality: Good Indications / History: Fluid overload. Diagnosis/CPT Code(s): TTE - 2D w/ or w/o M-Mode Complete (99335). Echo Dimensions Ao Root Tash (M-Mode): 2.8 cm LA Dimen (M-Mode): 4.6 cm IVS(D) (M-Mode): 1.43 cm IVS(D) (2D): 1.2 cm LVPW(D) (M-Mode): 1.39 cm LVPW(D) (2D): 1.5 cm LV(D) (M-Mode): 4.08 cm LV(D) (2D): 4.2 cm LV(S) (M-Mode): 3.39 cm LV(S) (2D): 3.4 cm Asc Ao Tash (2D): 2.6 cm RV(D (2D): 4 cm LVOT (2D): 1.8 cm AV opening (M-Mode): 4.6 cm EF (M-Mode): 38 % EF (2D): 40 % RVSP (Doppler): 111 mmHg Doppler ------- * Aortic Valve LVOT Peak Gradient: 2 mmHg. LVOT Peak Velocity: 0.75 m/s. LVOT Mean Grad: 1 mmHg. LVOT VTI: 15.4 cm. LVOT/AV VTI: 0.59. AV Peak Velocity: 1.38 m/s. AV Peak Gradient: 8 mmHg. AV Mean Gradient: 4 mmHg. AV VTI: 27.4 cm. * Mitral Valve MV Area (PHT): 3.44 cm2. MV Peak E Rayo: 0.58 m/s. MV Peak A Rayo: 0.83 m/s. E/A: 0.7. MV PHT: 64 ms. MV Dec T: 219 ms. * Diastolic Functions / TDI E/e' lateral: 7.5. Peak e' lateral rayo: 7.72 cm/s. * Tricuspid Valve RVSP: 111 mmHg. RA Pressure: 10 mmHg. TR Peak Grad: 58 mmHg. TV Regurg.Peak Rayo: 5.08 m/s. Findings -------- Left Ventricle LV chamber size is normal. LV wall thickness is moderately increased. LV systolic function is moderately reduced. There is moderate global hypokinesis. The left ventricle is D-shaped consistent with right ventricular pressure overload. The estimated left ventricular ejection fraction is 35-40% (abnormal). Doppler evidence for Grade I diastolic dysfunction. Right Ventricle Right ventricle size is moderately dilated. Left Atrium Left Atrium chamber is mildly to moderately dilated. LA diameter is 4.6 cm. Right Atrium Right Atrium chamber is moderately to moderate severely dilated. Aortic Valve There is a trileaflet aortic valve. Calcified aortic valve. There is no aortic regurgitation. There is no aortic valve stenosis. Mitral Valve The mitral valve leaflet is mildly thickened. There is moderate to moderate severe eccentric mitral regurgitation directed towards the atrial septum. There is no mitral stenosis. Tricuspid Valve Tricuspid valve is structurally normal. There is severe tricuspid regurgitation. Estimated RVSP systolic pressure is 111 mmHg. Pulmonary Valve The pulmonic valve structurally is normal. There is moderate to moderate severe pulmonic regurgitation. Pericardium The pericardium is normal. There is no pericardial effusion present. There is a pleural effusion. Ascites appears to be present. Aorta The size of the visualized portion of aortic root is within normal limits. Aortic Root diameter (M-mode) is 2.8 cm. The pulmonary artery is dilated, measuring 2.3 cm. The right pulmonary artery branch is dilated, measuring 2 cm. The left pulmonary artery branch is dilated, measuring 2 cm. Thrombus/Mass There is no intracardiac mass or thrombus identified. Impressions * M-mode, 2-D echocardiogram is performed with cardiac doppler including, spectral doppler (continuous wave and pulse wave) and color flow. There is no evidence of intracavitary mass or thrombus. Right heart pressure is 111 mmHg. * LVEF (abnormal): 35-40%. * Moderate LV systolic dysfunction. * Moderate concentric LV hypertrophy. * There is moderate global hypokinesis. * The left ventricle is D-shaped consistent with right ventricular pressure overload. * Doppler evidence for Grade I diastolic dysfunction. * Moderately dilated right ventricle. * Mild to moderate left atrial enlargement. * Moderate to moderate severe right atrial enlargement. * Moderate to moderate severe mitral regurgitation. * Severe tricuspid regurgitation. * Moderate to moderate severe pulmonic regurgitation. * The size of the visualized portion of aortic root is within normal limits. * No pericardial effusion. * There is a pleural effusion. * Ascites appears to be present. * There are changes compared to previous study (01/01) Previous EF 54- 59%, Current EF 38%; Chamber sizes increased; Pulmonary arteries dilated. Electronically signed by: Norris Sanchez MD 11/03/2024 3:03 PM FAR[facility]
== END 2024-11-01 02:45 | disposition short-term general hospital (02) | DRG 291 ==
LOC: ED 19:41 → MS 19:41 → OBSVTOIN 20:36 → MS 21:15
PROVIDERS: ADMIT Family Medicine; ATTEND Family Medicine
DX: Z91.198 Patient's noncompliance with other medical treatment and regimen for other reason; E66.9 Obesity, unspecified; Z51.5 Encounter for palliative care; J18.9 Pneumonia, unspecified organism; E87.5 Hyperkalemia; D50.9 Iron deficiency anemia, unspecified; N30.01 Acute cystitis with hematuria; L65.9 Nonscarring hair loss, unspecified; Z68.31 Body mass index [BMI] 31.0-31.9, adult; I89.0 Lymphedema, not elsewhere classified; I50.43 Acute on chronic combined systolic (congestive) and diastolic (congestive) heart failure; E83.39 Other disorders of phosphorus metabolism; N18.5 Chronic kidney disease, stage 5; E88.09 Other disorders of plasma-protein metabolism, not elsewhere classified; I13.2 Hypertensive heart and chronic kidney disease with heart failure and with stage 5 chronic kidney disease, or end stage renal disease